=== PATIENT | male | born 1985 | race African-American/Black ===

== ENCOUNTER 2017-02-09 12:01 | Emergency (ER) | payer MEDICARE ==
[2017-02-09 12:05] VITALS: BP 136/82
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
[2017-02-09] MEDS ORDERED: Amoxicillin/Clavulanate TAB* 875 MG PO ONE (13:57)
== END 2017-02-09 14:08 | disposition home or self-care (01) ==
LOC: ED 12:01
DX: S01.511A Laceration without foreign body of lip, initial encounter (principal); W50.0XXA Accidental hit or strike by another person, initial encounter; Y93.9 Activity, unspecified; Y92.9 Unspecified place or not applicable
CPT/HCPCS: 99282; A9270-GY

== ENCOUNTER 2018-04-26 10:51 | Emergency (ER) | payer OTHER, MEDICAID ==
[2018-04-26] MEDS ORDERED: Albuterol/Ipratropium NEB.SOL* Albuterol 2.5 MG/Ipratropium 0.5 MG 3 ML INH ONE (11:20)
--- NOTE | 2018-04-26 12:31 | RAD ---
INDICATION: Right elbow injury. TECHNIQUE: 4 views of the right elbow were obtained. FINDINGS: There is soft tissue swelling posterior to the olecranon process of the ulna. The bones are normal alignment. No joint effusion or fracture is seen. IMPRESSION: SOFT TISSUE SWELLING, NO FRACTURE IS SEEN. IF THE PATIENT'S SYMPTOMS PERSIST RECOMMEND FOLLOW-UP IMAGING.
[2018-04-26 12:39] VITALS: BP 125/90
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
[2018-04-26] MEDS ORDERED: LORazepam TAB(*) 1 MG ONE (14:54)
== END 2018-04-26 12:34 | disposition home or self-care (01) ==
LOC: ED 10:51
DX: J45.909 Unspecified asthma, uncomplicated (principal); R06.02 Shortness of breath; R05 Cough; M25.521 Pain in right elbow
CPT/HCPCS: 99282; A9270-GY

== ENCOUNTER 2018-04-26 13:48 | Inpatient (IN) | payer OTHER, MEDICAID ==
[2018-04-26] MEDS ORDERED: diPHENhydraMINE IV* 50 MG/ML 1 ml VIAL (BENADRYL) IM ONE (13:54)
[2018-04-26] MEDS ORDERED: Haloperidol INJ IV/IM* 5 MG/ML AMP IM ONE (13:54)
[2018-04-26] MEDS ORDERED: LORazepam INJ* 2 MG/ML 1 ML VIAL IM ONE (13:54)
[2018-04-26] MEDS ORDERED: LORazepam INJ* 2 MG/ML 1 ML VIAL ONE (14:11)
[2018-04-26] MEDS ORDERED: diPHENhydraMINE IV* 50 MG/ML 1 ml VIAL (BENADRYL) ONE (14:11)
[2018-04-26] MEDS ORDERED: Haloperidol INJ IV/IM* 5 MG/ML AMP ONE (14:11)
[2018-04-26] MEDS ORDERED: LORazepam TAB(*) 1 MG PO ONE ×2 (14:53→22:01)
[2018-04-26 15:47] LABS: ABS Basophils 0 10^3/ul (0-0.2); ABS Eosinophils 0.1 10^3/ul (0-0.6); ABS Lymphocytes 1.3 10^3/ul (1.0-4.8); ABS Monocytes 0.6 10^3/ul (0-0.8); ABS Neutrophils 4.9 10^3/ul (1.5-7.7); ABS Nucleated RBC 0 10^3/ul; Eosinophil % 0.9 % (0-6); Hematocrit 41 % (42-52); Hemoglobin 14.2 g/dl (14.0-18.0); Lymphocyte % 19.1 % (25-47); Mean Corpuscular HGB Conc 35 g/dl (31-36); Mean Corpuscular Hemoglobin 29 pg (27-31); Mean Corpuscular Volume 83 fL (80-94); Mean Platelet Volume 6.8 um3 (7.4-10.4); Nucleated Red Blood Cells % 0.1; Platelet Count 248 10^3/ul (150-450); Red Cell Distribution Width 14 % (10.5-15); White Blood Count 6.9 10^3/ul (3.5-10.8)
[2018-04-26 16:03] LABS: EGFR Non-African American 83.2 (>60)
[2018-04-26 17:06] LABS: Lithium < 0.10 mmol/L (0.6-1.2)
--- NOTE | 2018-04-26 18:47 | ED ---
Tuan Sousa Simon, scribed for Nick Castillo MD on 04/26/18 at 1402 . Psychiatric Complaint - HPI Summary HPI Summary: This patient is a 33 year old M presenting to [facility] with a chief complaint of a psychiatric complaint since 0. Pt vehemently and repeatedly denies SI, HI currently, however, while sitting in the waiting room he was overheard stating he had SI, HI towards someone named "sulema". Pt is agitated and frustrated. Level 5 caveat: Full HPI unobtainable due to patient's agitation and uncooperative behavior. - History Of Current Complaint Chief Complaint: EDMentalHealth Time Seen by Provider: 04/26/18 13:50 Hx Obtained From: Patient, Other: - police Hx From Patient Unobtainable Due To: Other - Not cooperative. Onset/Duration: Sudden Onset, Still Present Timing: Constant Severity Initially: Moderate Severity Currently: Moderate Character: Manic, Frustrated Aggravating Factor(s): Recent Stress Alleviating Factor(s): Nothing Associated Signs And Symptoms: Positive: Hostile, Paranoid Behavior Related History: Positive For: Prior Psychiatric Issues Has Suicidal: Reports: Thoughts Has Homicidal: Reports: Demonstrates Gesture - hostile phone call, violent behavior in ED. Recent Stressor(s): Readmission immediately after discharge. - Allergies/Home Medications Allergies/Adverse Reactions: Allergies Allergy/AdvReac Type Severity Reaction Status Date / Time bee venom protein (honey bee) Allergy Swelling Verified 04/26/18 11:05 peas Allergy Itching Verified 04/26/18 11:05 PMH/Surg Hx/FS Hx/Imm Hx Psychiatric History: Reports: Hx of Violent Episodes Against Others Denies: Hx Eating Disorder - Social History Alcohol Use: Weekly Substance Use Type: Reports: Marijuana Smoking Status (MU): Light Every Day Tobacco Smoker Review of Systems Positive: Other - denies SI, HI. All Other Systems Reviewed And Are Negative: No - Comments Additional Review of Systems Comments: Level 5 caveat: Full ROS unobtainable due to patient's agitation and uncooperative behavior. Physical Exam - Summary Physical Exam Summary: General: well-appearing, no pain distress Skin: warm, color reflects adequate perfusion, dry Head: normal Eyes: EOMI, ALFONZO ENT: normal Neck: supple, nontender Respiratory: CTA, breath sounds present Cardiovascular: RRR Abdomen: soft, nontender Bowel: present Musculoskeletal: normal, strength/ROM intact Neurological: sensory/motor intact, A&O x3, no FND Psychological: affect/mood appropriate, yelling, being verbally abusive, a danger to others, potentially to self Triage Information Reviewed: Yes Vital Signs On Initial Exam: Initial Vitals Temp Pulse Resp BP Pulse Ox 98.7 F 88 19 156/107 99 04/26/18 14:07 04/26/18 14:07 04/26/18 14:07 04/26/18 14:07 04/26/18 14:07 Vital Signs Reviewed: Yes Diagnostics - Vital Signs Vital Signs Temp Pulse Resp BP Pulse Ox 04/26/18 14:57 26 04/26/18 14:21 22 04/26/18 14:07 98.7 F 88 19 156/107 99 - Laboratory Lab Results: Lab Results 04/26/18 04/26/18 Range/Units 15:41 15:42 WBC 6.9 (3.5-10.8) 10^3/ul RBC 4.90 (4.00-5.40) 10^6/ul Hgb 14.2 (14.0-18.0) g/dl Hct 41 L (42-52) % MCV 83 (80-94) fL MCH 29 (27-31) pg MCHC 35 (31-36) g/dl RDW 14 (10.5-15) % Plt Count 248 (150-450) 10^3/ul MPV 6.8 L (7.4-10.4) um3 Neut % (Auto) 70.8 (38-83) % Lymph % (Auto) 19.1 L (25-47) % [place] % (Auto) 8.5 H (0-7) % Eos % (Auto) 0.9 (0-6) % Baso % (Auto) 0.7 (0-2) % Absolute Neuts (auto) 4.9 (1.5-7.7) 10^3/ul Absolute Lymphs (auto) 1.3 (1.0-4.8) 10^3/ul Absolute Monos (auto) 0.6 (0-0.8) 10^3/ul Absolute Eos (auto) 0.1 (0-0.6) 10^3/ul Absolute Basos (auto) 0 (0-0.2) 10^3/ul Absolute Nucleated RBC 0 10^3/ul Nucleated RBC % 0.1 Sodium 136 (135-145) mmol/L Potassium 3.3 L (3.5-5.0) mmol/L Chloride 105 (101-111) mmol/L Carbon Dioxide 23 (22-32) mmol/L Anion Gap 8 (2-11) mmol/L BUN 16 (6-24) mg/dL Creatinine 1.03 (0.67-1.17) mg/dL Est GFR ( Amer) 100.6 (>60) Est GFR (Non-Af Amer) 83.2 (>60) BUN/Creatinine Ratio 15.5 (8-20) Glucose 100 (70-100) mg/dL Calcium 9.5 (8.6-10.3) mg/dL Total Bilirubin 1.00 (0.2-1.0) mg/dL AST 28 (13-39) U/L ALT 18 (7-52) U/L Alkaline Phosphatase 49 (34-104) U/L Total Creatine Kinase 576 H (10-223) U/L Total Protein 6.9 (6.4-8.9) g/dL Albumin 4.2 (3.2-5.2) g/dL Globulin 2.7 (2-4) g/dL Albumin/Globulin Ratio 1.6 (1-3) TSH 1.08 (0.34-5.60) mcIU/mL Salicylates < 2.50 (<30) mg/dL Acetaminophen < 15 mcg/mL [place] < 0.10 L (0.6-1.2) mmol/L Serum Alcohol < 10 (<10) mg/dL Result Diagrams: 04/26/18 15:41 04/26/18 15:42 Lab Statement: Any lab studies that have been ordered have been reviewed, and results considered in the medical decision making process. Course/Dx - Course Course Of Treatment: DISPOSITION AND MHE PENDING AT SHIFT CHANGE. - Differential Dx/Clinical Impression Provider Diagnosis: Mental health problem Discharge - Sign-Out/Discharge Documenting (check all that apply): Sign-Out Patient Signing out patient TO: Ligia Little - MHE - Discharge Plan Condition: Stable Disposition[place]IATR[facility] [place] [place] Referrals: No Primary Care Phys,NOPCP [Primary Care Provider] - - Billing Disposition and Condition Condition: STABLE Disposition: Psychiatric Facility [facility] [place] The documentation as recorded by the Tuan oropeza Simon accurately reflects the service I personally performed and the decisions made by me, Nick Castillo MD.
[2018-04-27] MEDS ORDERED: chlorproMAZINE INJ* 25 MG/ML 2 ML (50 MG) IM ONE (07:47)
[2018-04-27] MEDS ORDERED: chlorproMAZINE INJ* 25 MG/ML 2 ML (50 MG) ONE (07:48)
[2018-04-27] MEDS ORDERED: chlorproMAZINE TAB* 100 MG PO ONE (07:51)
[2018-04-27] MEDS ORDERED: chlorproMAZINE TAB* 50 MG ONE (07:57)
[2018-04-27] MEDS ORDERED: chlorproMAZINE TAB* 50 MG PO ONE ×2 (08:00→15:26)
[2018-04-27] MEDS ORDERED: Acetaminophen TAB* 325 MG PO PRN (13:09)
[2018-04-27] MEDS ORDERED: Nicotine Inhaler* 10 MG AMP INH PRN (13:09)
[2018-04-27] MEDS ORDERED: Nicotine GUM* 2 MG PO PRN (13:09)
[2018-04-27] MEDS ORDERED: Al Hydrox/Mg Hydrox/Simet LIQ* 30 ML UDC PO PRN (13:09)
[2018-04-27] MEDS ORDERED: LORazepam TAB(*) 1 MG PO PRN (13:11)
--- NOTE | 2018-04-27 13:14 | PN ---
Progress Note - Progress Note Date of Service: 04/27/18 Note: S: Patient is asleep in ED s/p stat antipsychotic and anxiolytic medication administration. Staff notes indicate he remains combative and agitated when awake. reports he is off meds. O: patient asleep in ED A/P: Bipolar Daf[place]: admit to [facility] on 9.39 legal status
[2018-04-27] MEDS ORDERED: Mouth Piece, Nicotine* 1 EACH CARTRIDGE INH PRN (13:19)
--- NOTE | 2018-04-27 14:01 | ED ---
Barry Sousa Angela, scribed for Hao Short MD on 04/27/18 at 1230 . Progress - Progress Note Progress Note: This pt was signed out by Dr. Little, pending disposition, awaiting MHE. Pt had a mental health evaluation and his case was reviewed by Dr. Sepulveda, psychiatrist. Dr. Sepulveda recommends admission to [facility] [place] psychiatry. Pt will be admitted involuntary with a diagnosis of bipolar disorder. Course/Dx - Diagnoses Provider Diagnoses: Bipolar disorder Discharge - Sign-Out/Discharge Documenting (check all that apply): Discharge/Admit/Transfer - Admit, Receiving Sign-Out Receiving patient FROM: Ligia Little - Discharge Plan Condition: Stable Disposition: PSYCHIATRIC FACILITY[place] [place] - Billing Disposition and Condition Condition: STABLE Disposition: Psychiatric Facility [facility] [place] The documentation as recorded by the Barry oropeza Angela accurately reflects the service I personally performed and the decisions made by Han sim Richard L, MD.
[2018-04-27] MEDS ORDERED: Haloperidol INJ IV/IM* 5 MG/ML AMP IM ONE (15:49)
[2018-04-27] MEDS ORDERED: diPHENhydraMINE IV* 50 MG/ML 1 ml VIAL (BENADRYL) IM ONE (15:49)
[2018-04-27] MEDS ORDERED: LORazepam INJ* 2 MG/ML 1 ML VIAL IM ONE (15:49)
[2018-04-27] MEDS ORDERED: LORazepam INJ* 2 MG/ML 1 ML VIAL ONE (16:03)
[2018-04-27] MEDS ORDERED: diPHENhydraMINE IV* 50 MG/ML 1 ml VIAL (BENADRYL) ONE (16:03)
[2018-04-27] MEDS ORDERED: Haloperidol INJ IV/IM* 5 MG/ML AMP ONE (16:04)
[2018-04-27] MEDS ORDERED: LORazepam TAB(*) 1 MG ONE (16:08)
[2018-04-27] MEDS ORDERED: diPHENhydraMINE PO* 50 MG ONE (16:08)
[2018-04-27] MEDS ORDERED: Haloperidol TAB* 5 MG ONE (16:09)
--- NOTE | 2018-04-28 03:40 | ED ---
Curtis Sousa Tariq, scribed for Ligia Little MD on 04/27/18 at 0659 . Course/Dx - Course Course Of Treatment: DISPOSITION AND MHE PENDING AT SHIFT CHANGE. - Diagnoses Provider Diagnoses: Bipolar disorder Discharge - Sign-Out/Discharge Documenting (check all that apply): Discharge/Admit/Transfer Signing out patient TO: Hao Short Receiving patient FROM: Ligia Little - Discharge Plan Condition: Stable Disposition: [facility]YCHIATRIC FACILITY[place] [place] - Billing Disposition and Condition Condition: STABLE Disposition: Psychiatric Facility [facility] [place] The documentation as recorded by the Curtis oropeza Tariq accurately reflects the service I personally performed and the decisions made by Anabel sim Abdul, MD.
[2018-04-28] MEDS: LORazepam TAB(*) 1 MG PO PRN ×3 (06:40→14:38)
[2018-04-28] MEDS: diPHENhydraMINE PO* 50 MG PO PRN ×3 (06:40→14:38)
[2018-04-28] MEDS: Haloperidol TAB* 5 MG PO PRN ×2 (06:40→14:38)
[2018-04-28] MEDS: Divalproex DR TAB(*) 250 MG PO SCH ×2 (10:23→22:38)
[2018-04-28] MEDS ORDERED: Albuterol HFA INHALER* 8 gm MDI INH PRN (12:50)
--- NOTE | 2018-04-28 13:27 | HP ---
H&P (Free Text) History and Physical: JUSTIFICATION FOR ADMISSION: Patient presented to emergency room with suicidal/homicidal ideation and irritability/agitated behavior. He requires inpatient psychiatric admission in order to provide treatment and stabilization as he is a danger to others and himself. CHIEF COMPLAINT: "I want to leave now Source of Information: Patient, Chart review HISTORY OF THE PRESENT ILLNESS: Patient is an male, unemployed, on disability, with history of Bipolar Disorder and Cannabis Dependence was admitted to inpatient unit for mood and behavioral dysregulation. Patient has been non-compliant with his treatment and outpatient appointments. Patient is a poor historian, uncooperative, easily irritable, agitated, and most of past history is obtained from chart review. Patient was recently hospitalized on inpatient psychiatric unit in [place]. Patient failed to comply with discharge planning upon discharge. Patient had a relapse in his Bipolar Disorder symptoms, with mood instability and agitated/aggressive behavior, pressured and disorganized thoughts, not sleeping well, impulsive behavior, suicidal and homicidal thoughts but no intent or plan. Patient would make threats to hurt others. Patient was very agitated during the interview and wanted to be discharged and became hostile and threatening when educated about admission process and treatment. Patient perseverates on being discharged. Patient was offered to be restarted on medications to improve his mood and behavior. Patient after multiple attempts from database report writer and staff did take PO medication and did not require IM medications. Patient reported no depressive symptoms other than suicidal ideation. Patient reports no psychotic symptoms of hallucinations and delusions but questionable paranoia, with disorganized thoughts. Patient continued to exhibit behavior that is danger to self and others if discharged in the community. PAST PSYCHIATRIC HISTORY: Patient has history of multiple inpatient psychiatric hospitalization. Patient has history of not following up with outpatient psychiatric treatment. Patient has been associated with ACT team in the past that has somewhat helped him with treatment compliance. Patients medications has been [facility] [place], Depakote and Risperidone oral and Consta. Patient has responded well to Depakote and Risperidone in the past. Patient has been in inpatient drug treatment [facility] in the [facility]. Patient has history of suicidal thoughts but no attempt or plan. Patient has history of homicidal threats but no intent or attempt. Patient has history of aggressive and agitated behavior when decompensates. No access to firearm reported. SUBSTANCE ABUSE HISTORY: Patient uses marijuana but was uncooperative with details. Patient also refused to give urine for toxicology. Last use was unknown. Patient has been in inpatient treatment for drugs. PAST MEDICAL HISTORY: No active medical problems ?Asthma ALLERGIES: honey Bees and Peas. FAMILY PSYCHIATRIC HISTORY: Patient has family history of mother with Bipolar Disorder. Patient has unknown history of substance abuse and suicide in the family. Father has long history of criminal activity. FAMILY/PSYCHOSOCIAL HISTORY: Patient reports that he currently lives with his in [place]. Patient reports having three children that he has not seen in years and became irritable about that and refused to answer further. Patient education level is unsure but as per previous records he did not graduate high school. Patient was raised in [place] and is oldest of 5 siblings. Parents when patient was young. Patient has been associated with ACT team in the past. Patient support system includes currently his family and . REVIEW OF SYSTEMS: Patients review of symptoms was negative for any physical complaint. But patient has been agitated and unstable in his mood, refusing his vitals to be taken. Patients ED physical exam was reviewed which is grossly normal with no active medical problem. MENTAL STATUS EXAMINATION: Appearance: older than stated age, in casual clothing, poor eye contact, fair grroming Behavior: uncooperative, hostile Gait: normal Abnormal motor activity: none Speech: pressured, loud tone and volume. Mood: not good, I want to leave Affect: irritable, labile Thought process: disorganized and tangential mostly Thought Content: Suicidal/Homicidal ideation: denied Delusions: ? paranoia Obsessions: none Phobia: none Perceptual disturbance: none reported, did not appear to be responding to hallucinations. Attention: impaired Orientation: intact Concentration: impaired Memory: poor Insight: limited Judgment: poor Impulse control: poor IMPRESSION: Patient with history of Bipolar Disorder, Cannabis use Disorder. Patient currently admitted due to worsening of mood instability and aggressive and agitated behavior . Patient has also struggled with Cannabis abuse in the past but currently uncooperative with substance use history. Patient is a danger to self and others if discharged hence will be stabilized on inpatient unit with medication adjustments and therapy. DIAGNOSES: Bipolar Id Disorder, MRE manic with out psychotic feature, History of Cannabis Use Disorder, R/O Psychotic Disorder PLAN: Admit to [facility] on Q 15 min observation. Patient is full code. Patient is on involuntary admission status Integrate patient into the milieu individual and group psychotherapy [place] work consult for therapy and discharge planning Will hold family meeting to increase Data base. Patient was started on his previous medications Depakote 750 mg PO BID, Risperidone 1 mg PO AM and 2 mg HS with plan to change Risperidone to Invega Sustena as patients approval and tolerates. Will initiate Albuterol INH PRN for Asthma. Will continue with Haldol 5 mg/ Ativan 2 mg/ Benadryl 50mg PO Q 6hrs PRN agitation. Will continue to monitor and f/u for improvement and side effects. Gissel Gary MD Attending Psychiatrist
[2018-04-28] MEDS ORDERED: risperiDONE TAB* 2 MG ONE (14:32)
[2018-04-28] MEDS: risperiDONE TAB* 2 MG PO SCH (14:51)
[2018-04-28] MEDS: Benztropine TAB* 1 MG PO SCH (22:38)
[2018-04-29] MEDS: Benztropine TAB* 1 MG PO SCH (07:01)
[2018-04-29] MEDS: diPHENhydraMINE PO* 50 MG PO PRN (07:01)
[2018-04-29] MEDS: Divalproex DR TAB(*) 250 MG PO SCH (07:01)
[2018-04-29] MEDS: LORazepam TAB(*) 1 MG PO PRN (07:01)
[2018-04-29] MEDS: risperiDONE TAB* 2 MG PO SCH (07:01)
[2018-04-29] MEDS: Haloperidol TAB* 5 MG PO PRN (07:02)
[2018-04-29 07:28] VITALS: BP 142/74
[2018-04-29] MEDS ORDERED: Paliperidone SUSTENNA* 234 MG/1.5 ML IM ONE (10:39)
--- NOTE | 2018-04-29 14:01 | DS ---
Subjective - Subjective Service Types: 22007 [facility] Day Mgmt complex over 30 min Discharge Date: 04/29/18 Subjective: Patient is an male, unemployed, on disability, with history of Bipolar Disorder and Cannabis Dependence was admitted to inpatient unit for mood and behavioral dysregulation. Patient has been non-compliant with his treatment and outpatient appointments. Patient is a poor historian, uncooperative, easily irritable, agitated, and most of past history is obtained from chart review. Patient was recently hospitalized on inpatient psychiatric unit in [place]. Patient failed to comply with discharge planning upon discharge. Patient had a relapse in his Bipolar Disorder symptoms, with mood instability and agitated/aggressive behavior, pressured and disorganized thoughts, not sleeping well, impulsive behavior, suicidal and homicidal thoughts but no intent or plan. Patient would make threats to hurt others. Patient was very agitated during the interview and wanted to be discharged and became hostile and threatening when educated about admission process and treatment. Patient perseverates on being discharged. Patient was offered to be restarted on medications to improve his mood and behavior. Patient after multiple attempts from film writer and staff did take PO medication and did not require IM medications. Patient reported no depressive symptoms other than suicidal ideation. Patient reports no psychotic symptoms of hallucinations and delusions but questionable paranoia, with disorganized thoughts. Patient continued to exhibit behavior that is danger to self and others if discharged in the community. PAST PSYCHIATRIC HISTORY: Patient has history of multiple inpatient psychiatric hospitalization. Patient has history of not following up with outpatient psychiatric treatment. Patient has been associated with ACT team in the past that has somewhat helped him with treatment compliance. Patients medications has been [place], Depakote and Risperidone oral and Consta. Patient has responded well to Depakote and Risperidone in the past. Patient has been in inpatient drug treatment following release from [facility] in the past. Patient has history of suicidal thoughts but no attempt or plan. Patient has history of homicidal threats but no intent or attempt. Patient has history of aggressive and agitated behavior when decompensates. No access to firearm reported. SUBSTANCE ABUSE HISTORY: Patient uses marijuana but was uncooperative with details. Patient also refused to give urine for toxicology. Last use was unknown. Patient has been in inpatient treatment for drugs. PAST MEDICAL HISTORY: No active medical problems ?Asthma ALLERGIES: honey Bees and Peas. FAMILY PSYCHIATRIC HISTORY: Patient has family history of mother with Bipolar Disorder. Patient has unknown history of substance abuse and suicide in the family. Father has long history of criminal activity. FAMILY/PSYCHOSOCIAL HISTORY: Patient reports that he currently lives with his in [place]. Patient reports having three children that he has not seen in years and became irritable about that and refused to answer further. Patient education level is unsure but as per previous records he did not graduate high school. Patient was raised in [place] and is oldest of 5 siblings. Parents when patient was young. Patient has been associated with ACT team in the past. Patient support system includes currently his family and . REVIEW OF SYSTEMS: Patients review of symptoms was negative for any physical complaint. But patient has been agitated and unstable in his mood, refusing his vitals to be taken. Patients ED physical exam was reviewed which is grossly normal with no active medical problem. MENTAL STATUS EXAMINATION ON ADMISSION: Appearance: older than stated age, in casual clothing, poor eye contact, fair grroming Behavior: uncooperative, hostile Gait: normal Abnormal motor activity: none Speech: pressured, loud tone and volume. Mood: ot good, I want to leaveAffect: irritable, labile Thought process: disorganized and tangential mostly Thought Content: Suicidal/Homicidal ideation: denied Delusions: ? paranoia Obsessions: none Phobia: none Perceptual disturbance: none reported, did not appear to be responding to hallucinations. Attention: impaired Orientation: intact Concentration: impaired Memory: poor Insight: limited Judgment: poor Impulse control: poor IMPRESSION: Patient with history of Bipolar Disorder, Cannabis use Disorder. Patient currently admitted due to worsening of mood instability and aggressive and agitated behavior . Patient has also struggled with Cannabis abuse in the past but currently uncooperative with substance use history. Patient is a danger to self and others if discharged hence will be stabilized on inpatient unit with medication adjustments and therapy. DIAGNOSES on Admission: Bipolar Id Disorder, MRE manic with out psychotic feature, History of Cannabis Use Disorder, R/ O Psychotic Disorder Objective - Appearance Appearance: Healthy Appearing Dysmorphic Features: No Hygiene: Normal Grooming: Fairly Well Kept - Behavior Psychomotor Activities: Normal Exhibits Abnormal Movement: No - Attitude and Relatedness Attitude and Relatedness: Cooperative Eye Contact: Fair - Speech Quality: Unpressured Latencies: Normal Quantity: Appropriate - Mood Patient's Decription of Mood: "Fine" - Affect Observed Affect: Fair Affect Consistent with: Euthymia - Thought Process Patient's Thought Process: Goal Directed Thought Content: No Passive Wish, No Suicidal Planning, No Homicidal Ideation, No Paranoid Ideation - Sensorium Experiencing Hallucinations: No, Sensorium is Clear Type of Hallucinations: Visual: No, Auditory: No, Command: No - Level of Consciousness Level of Consciousness: Alert Orientation: No Intact, No Orientated to Time, No Orientated to Place, No Orientated to Person - Impulse Control Impulse Control: Intact - Insight and Judgement Insight and Judgement: Fair - Medication Management Medication Management Adherence: Yes Treatment Course & Assessment Clinical Course & Impression: Patient with history of Bipolar Disorder, Cannabis use Disorder. Patient currently admitted due to worsening of mood instability and aggressive and agitated behavior . Patient has also struggled with Cannabis abuse. Patient was admitted to [facility] on Q 15 min observation. Patient was on involuntary admission status. Patient was encouraged to participate in the milieu and group but was preoccupied with discharge and very impulsive and disorganized in his thought process. Patient reportedly consumed Cannabis before coming to the hospital but later during hospitalization reported that it might have been laced. Patient was very hyperactive and disruptive with his needs and requesting to be discharged. Patient after multiple attempts was convinced to comply with treatment and staff re directions. Social work was consulted for therapy and discharge planning. Patient was started on his previous medications Depakote and Risperidone that he has tolerated and responded well to in the past. Patient was started on Depakote 750 mg PO BID, Risperidone 2 mg PO BID and Cogentin 0.5 mg BID. Patient was also kept on Haldol 5 mg, Ativan 2mg and Benadryl 50 mg PO Q 6HRS PRN for agitation. Patient was given was able to take PO medications on the unit after redirections for agitation. Patient responded well to Depakote and risperidone and was educated about IM Invega sustena. After informed consent patient was given 234 mg of Invega Sustena today with plan to follow up outpatient psychiatrist and receive his next injection of 156 mg IM. Patient recovered well over night after compliance with medications. Patient mood and behavior were more stable. Patient's thinking was more organized and did not display any delusion. Family meeting was arranged with his girlfriend about discharge planning. Patient was not interested in outpatient drug treatment but agree to go to NA meetings on his own. Patient did well during the meeting and agree to f/u outpatient for medications management. As patient improved in his symptoms, no si/hi, no psychosis, mood and behavior were stable, wanted to be discharged. Patient did not meet the criteria for inpatient hospitalization, hence after discussing with team and family patient was discharged with the family. Merits Inpatient Hospitalization: No Clear for Discharge: Adequate Clinical Respons Inpatient DSM-V Dx: F25.0 Discharge Planning - Discharge Planning Discharge Plan: Outpatient Follow Up Recommendations for Continuing Care: Medication Management Medications: Current Medications Acetaminophen (Tylenol Tab*) 650 mg PO Q4H PRN PRN Reason: for pain; or Temp >101 F Al Hydrox/Mg Hydrox/Simethicone (Maalox Plus*) 30 ml PO Q4H PRN PRN Reason: INDIGESTION Albuterol (Ventolin Hfa Inhaler*) 2 puff INH Q6H PRN PRN Reason: SOB/WHEEZING Benztropine Mesylate (Cogentin Tab*) 0.5 mg PO BID [facility] Last Admin: 04/29/18 07:01 Dose: 0.5 mg Device (Nicotine Mouth Piece*) 1 each INH ONCE PRN PRN Reason: CRAVINGS Diphenhydramine HCl (Benadryl Po*) 50 mg PO Q6H PRN PRN Reason: AGITATION Last Admin: 04/29/18 07:01 Dose: 50 mg Divalproex Sodium (Depakote Dr Tab(*)) 750 mg PO BID [facility] Last Admin: 04/29/18 07:01 Dose: 750 mg Haloperidol (Haldol Tab*) 5 mg PO Q6H PRN PRN Reason: AGITATION Last Admin: 04/29/18 07:02 Dose: 5 mg Lorazepam (Ativan Tab(*)) 2 mg PO Q6H PRN PRN Reason: ANXIETY Last Admin: 04/29/18 07:01 Dose: 2 mg Nicotine (Nicotine Inhaler*) 10 mg INH Q2H PRN PRN Reason: CRAVING Nicotine Polacrilex (Nicotine Gum*) 2 mg PO Q2H PRN PRN Reason: CRAVING Discharge Planning: Prescriptions provided for discharge [x] Yes [] No Follow up care details as per social work arrangements. Patient response to discharge plan: [x] eager for discharge [] agreeable with discharge plan [] ambivalent about discharge [] disagrees with discharge today
== END 2018-04-29 15:25 | disposition home or self-care (01) | DRG 750 ==
LOC: ED 13:48 → BSU 04-27 13:14
PROVIDERS: ADMIT Psychiatry & Neurology Psychiatry; ATTEND Psychiatry & Neurology Psychiatry
DX: F25.0 Schizoaffective disorder, bipolar type (principal); R45.851 Suicidal ideations; F17.200 Nicotine dependence, unspecified, uncomplicated; F12.90 Cannabis use, unspecified, uncomplicated; J45.909 Unspecified asthma, uncomplicated; R45.850 Homicidal ideations; Z56.0 Unemployment, unspecified; Z91.030 Bee allergy status; Z72.89 Other problems related to lifestyle; Z91.018 Allergy to other foods; Z81.8 Family history of other mental and behavioral disorders; Z91.14 Patient's other noncompliance with medication regimen
CPT/HCPCS: 36415; 80053; 80061; 80178; 80320; 80329; 82550; 83036; 84443; 85025; 99222; 99238; 99283; A9270-GY; G0480; J1200; J1630; J2060; J2426